=== PATIENT | female | born 1960 | race Caucasian/White ===

== ENCOUNTER 2023-07-03 00:28 | Day surgery (SDC) | payer BC, SELFPAY ==
--- NOTE | 2023-06-26 12:39 | PC.NURSE ---
Report to the Outpatient Waiting Room, entrance under the green pavilion located off [facility], at time _7:30 AM on date ___07/03/23____. Planned Procedure Time: __9:30 AM . Time changes happen often and if your time is changed the preop area will call you the afternoon before. - You and your visitor will be asked to self-screen and do not enter if you have any COVID symptoms. - A mask is optional within the hospital at this time. NOTHING TO EAT OR DRINK 8 HOURS PRIOR TO SURGERY PER DR COREA Take the following medications with a SIP of water the mornING OF SURGERY LEVOTHYROXINE_AND DIAZEPAM IF NEEDED FOR DIZZINESS DO NOT STOP ANY OF YOUR OTHER PRESCRIPTION MEDICATIONS PRIOR TO SURGERY ?EXCEPT THE FOLLOWING Medications to discontinue per physician ____ALL VITAMINS AND SUPPLEMENTS 3 DAYS PRE OP.LAST DOSE 06/29/23 Please no make-up, nail tongan, hairspray, perfume, deodorant, or body powder the day of surgery. No jewelry (including any body piercings) or valuables the day of surgery, leave them at home. Please take a shower or bath the night before, or the morning of, surgery with an antibacterial soap. Wear comfortable, loose fitting clothing. Children are encouraged to wear pajamas. - Jewelry must be removed prior to entering the operating room. Rings and piercings that are not removed may be cut off. - The hospital will not accept responsibility for valuables. - Please leave all valuables, including medications, at home the day of surgery. If you are going home after surgery, a licensed special needs bus driver must drive you home. - NO public transportation without another adult if you receive anesthesia. - We recommend that an adult stay with you for 24 hours following discharge. - We also recommend that you do not drive, make important decision, drink alcoholic beverages, or take any drugs that were not prescribed by your health care provider for at least 24 hours after your discharge time. For Pediatric surgeries, we recommend two adults accompany the child home. Follow any additional instructions given to you from your surgeon. If you or anyone in your household have experienced Covid symptoms in the past week, please notify your surgeon or the nurse liaison at the phone number below for possible testing. Telephone instructions given to _PT and asked if any additional questions and then verbalized understanding. Patient advised to call surgeon office or pre surgery nurse liaison [phone] if any additional questions.
[2023-06-26 12:47] VITALS: BMI 30.4
--- NOTE | 2023-07-03 07:15 | P.HP_ITS ---
History of Present Illness History of Present Illness Chief complaint: ganglion left middle ring finger Narrative: Patient seen and examined in pre-operative holding area. No interval change in medical history or symptoms. Patient recalls previous discussion of benefits and alternatives to procedure. Continues to desire to proceed with left middle finger mucous cyst excision possible tissue transfer. Reviewed procedure, post- op expectations and risks including but not limited to bleeding, infection, injury to tendon/nerve/vessel, decreased hand function, stiffness, RSD, no change or worsening of symptoms, recurrence. I discussed the possible use of assistants and their participation in the case. Patient stated understanding and signed the consent form wishing to proceed. Review of Systems Review of Systems: All systems reviewed & are unremarkable except as noted in HPI and below PMFSH Social History Social History Smoking status: Never smoker Living arrangements: with family Spiritual care concerns: No Meds Home Medications and Allergies Home Medications Medication Instructions Recorded Confirmed Type levothyroxine 150 mcg capsule 150 mcg PO DAILY 05/27/23 06/26/23 History lovastatin 40 mg tablet 40 mg PO HS 05/27/23 06/26/23 History diazepam 5 mg tablet 5 mg PO PRN PRN Dizziness Or 06/26/23 06/26/23 History Vertigo glucosamine sulf dipot 2 cap PO DAILY 06/26/23 06/26/23 History chlr,msm,chond 550 mg-C 30 mg-pro 1 mg capsule (Glucosamine Chondroitin) levothyroxine 125 mcg tablet 125 mcg PO Q4D 06/26/23 06/26/23 History rimegepant 75 mg disintegrating 75 mg PO PRN PRN Migraine Headache 06/26/23 06/26/23 History tablet (Nurtec ODT) tramadol 50 mg tablet 50 mg PO Q6H PRN pain #12 tabs 07/03/23 Rx Allergies Allergy/AdvReac Type Severity Reaction Status Date / Time No Known Allergies Allergy Verified 06/26/23 12:28 Exam Narrative: unchanged Assessment and Plan Assessment and plan (1) Digital mucous cyst: Code(s): M67.449 - Ganglion, unspecified hand Status: Acute Assessment and Plan: cont as above
--- NOTE | 2023-07-03 07:16 | P.OP_ITS ---
Procedure Note - Detailed Date of Procedure 07/03/23 Pre-op Diagnosis left middle finger mucous cyst Post-op Diagnosis Same Procedure Performed excision left middle finger mucous cyst Surgeon Shanta Smalls MD [employer] Specialist sailaja mendenhall pa-c Anesthesia MAC Description of Procedure INFORMED CONSENT: The patient was seen and examined and marked in the pre-op area.? The patient signed the consent form. PROCEDURE IN DETAIL:The patient taken back to OR on the stretcher in supine position. Time out performed with anesthesia, surgeon and staff agreeing on patient's name site and surgery to be performed SCDs were placed on the lower extremities and inflated. A tourniquet was placed on {left} upper extremity and antibiotics given IV After anesthesia administered sedation I injected {6}cc 1%lido and 0.5% marcaine plain for digital block in the palm The?{left upper extremity}?was prepped and draped in sterile fashion the??{left upper extremity} was? exsanguinated with Esmarch bandage and tourniquet inflated to 250mmHg I proceeded with making an elliptical incision around the thinned, affected skin overthe mucous cyst through skin and dermis with 15 blade scalpel and proceeded with dissection around the underlying cystic mass from the DIPjoint capsule. I irrigated with normal saline. I identified a large osteophyte on distal phalanx at origin of cyst. This was excised with a rongeur til smooth and flat. A second radial osteophyte was identified just radial to extensor insertion. I reflected periosteum sharply and rongeured this osteophyte til smooth and flat as well. I irrigated with normal saline. I repaired capsular defects with 5-0 vicryl. I was unable to close the incision primarily even with wide undermining, so I proceeded with extending my incision proximal and distal and elevated a large radially based rotation advancement flap. This flap now all owed for primary closure with 4-0 and 5-0 chromic suture. A dressing of xeroform, 4x4, and tube gauze was applied after the tourniquet was let down noting the hand was warm and well perfused. The patient was then awaken from anesthesia and transferred to the recovery room in stable condition.? Complications - none EBL- 0cc Disposition - home in stable conditions Sailaja Mendenhall PA-C was essential for positioning, retraction, closure and dressing placement [facility] Billing Surgery - Charge Forward: Surgery Billing ([id number] same for sailaja adding modifier )
[2023-07-03] MEDS: LACTATED RINGERS 1,000 ML 30 ML IV CONT (08:00)
[2023-07-03 08:58] VITALS: BP 143/66; PULSE 66; RESP 14; TEMP 36.4; O2SAT 97
[2023-07-03] MEDS: SCOPOLAMINE 1 MG PATCH 1 PATCH TRANSDERM (09:00)
[2023-07-03] MEDS: ceFAZolin 2 GM/D5W 50 ML 2 GM/50 ML BAG IVPB (09:10)
[2023-07-03] MEDS: LIDOCAINE 1% BUFFERED WITH 8.4% SODIUM BICARB 1 ML SYRINGE 5 ML INFILTRATE (09:25)
[2023-07-03] MEDS: BUPivacaine HCL 0.5% 10 ML AMP 5 ML INFILTRATE (09:25)
[2023-07-03 09:38] VITALS: BP 126/70; PULSE 71; RESP 16; O2SAT 96
[2023-07-03 10:00] VITALS: BP 139/58; PULSE 66; RESP 15
[2023-07-03 10:21] VITALS: BP 150/69; PULSE 67; RESP 16
== END 2023-07-03 10:35 | disposition home or self-care (01) ==
PROVIDERS: PCP Internal Medicine; Visit Provider Plastic Surgery
PROC: (CPT 26210; principal; 2023-07-03 09:30)
DX: M67.442 Ganglion, left hand (principal); M25.742 Osteophyte, left hand; Z79.891 Long term (current) use of opiate analgesic
CPT/HCPCS: 26210; 14040; 88305; A9270; J0690; J1100; J2250; J2405; J2704; J3010; J7120